=== PATIENT | female | born 1975 | race Two or more races ===

== ENCOUNTER 2024-11-18 06:40 | Day surgery (SDC) | payer OTHER ==
[2024-11-10 08:49] VITALS: BP 114/76
[2024-11-10 09:16] LABS: BASO % 0.7 % (0.1-1.2); EOS # 0.07 (0.04-0.54); EOS % 1.1 % (0.7-7.0); LYMPH # 2.25 (1.18-3.74); LYMPH % 36.7 % (19.3-53.1); MEAN PLATELET VOLUME 10.30 fl (9.4-12.4); MONO # 0.43 (0.24-0.82); MONO % 7.0 % (4.7-12.5); NEUT # 3.32 (1.56-6.13); NEUT % 54.2 % (34.0-71.1); RED CELL DISTRIBUTION WIDTH 12.5 % (11.6-14.4)
[2024-11-10 09:38] LABS: INR 1.01
[2024-11-10 10:03] LABS: ALT/SGPT 16.0 U/L (12-78); AST/SGOT 8.0 U/L (15-37); BILIRUBIN TOTAL 0.47 mg/dL (0.3-1.2); BUN CREA RATIO 18.0 (7.0-25.0); CREATININE SERUM 0.77 mg/dL (0.55-1.02); GFR 80.35; GLOBULINA 3.6 G/DL (2.4-3.5); GLUCOSE FASTING 79.0 mg/dL (65-100); OSMOLALITY SERUM 283.0 MOSM/KG (275-295)
[~2024-11-18] VITALS: Ht 162.6 cm; Wt 78.0 kg
[~2024-11-18 06:40] MED LIST: MOUNJARO2.5 MG/0.5
[2024-11-18] MEDS ORDERED: POVIDONE-IODINE 118 ML BOTT TOP ONE (12:00)
== END 2024-11-18 16:10 | disposition home or self-care (01) ==
LOC: CIR.AMB 06:40
PROVIDERS: ATTEND Obstetrics & Gynecology Maternal & Fetal Medicine
DX: N84.0 Polyp of corpus uteri (principal)